=== PATIENT | male | born 1980 | race Caucasian/White ===

== ENCOUNTER 2016-09-25 05:22 | Inpatient (IN) | payer OTHER ==
--- NOTE | 2016-09-19 16:40 | CONS ---
DATE OF ADMISSION: 09/25/2016 DATE OF CONSULTATION: INTERNAL MEDICINE CONSULTATION AND PREOPERATIVE EVALUATION Patient of Dr. Bynum. Surgery is scheduled for 09/25/2016. Dear Dr. 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 The patient has a history consistent with spinal stenosis and ongoing low back pain. He has both right and left leg symptoms, especially wit h walking and standing. It also will wake him up at night. PAST MEDICAL HISTORY: Unremarkable. ALLERGIES: HE HAS NO KNOWN ALLERGIES: PAST SURGICAL HISTORY: None. FAMILY HISTORY: He is , 2 kids. Parents and siblings are alive and well. SOCIAL HISTORY: He was not in the armed services. CURRENT MEDICATIONS: He takes no medications other than [place]. HABITS: He has never smoked cigarettes and does not drink alcohol. REVIEW OF SYSTEMS: Generally unremarkable to all questions. Specifically, there is no difficulty w ith shortness of breath or tightness in his chest. Before his back got particularly bad, he was abl e to walk and climb stairs without difficulty. No history of hypertension or cardiac disease. He d oes get up twice to urinate. Unremarkable otherwise on review of systems. PHYSICAL EXAMINATION: GENERAL: Reveals a pleasant, alert gentleman in no acute distress. VITAL SIGNS: Blood pressure is 110/60, pulse is 68, he is afebrile. BMI is 29. Height is 5 foot 1 1 inches, 208 pounds. HEENT: No signs of trauma. Pupils round, reactive. Extraocular muscle movements are intact. Ears and throat: Unremarkable. NECK: Supple. LUNGS: Clear to percussion and auscultation. HEART: Tones regular. ABDOMEN: Soft without palpable mass or tenderness. EXTREMITIES: Straight leg raising is positive on either side. There is some weakness of the EHL on the right foot, and he is tender to palpation over his left low back. INITIAL IMPRESSION: Preoperative status, spinal stenosis and spondylolisthesis. DISCUSSION: Laboratory tests have returned and are unremarkable. At this point, the patient's medi regis status would appear to be stable and okay to proceed with surgery. We will be glad to follow hi m up postoperatively as needed. Dictated By: MAXIMILIANO GARCIA MD, SR/NTS Conf#: [id number] [facility]#: [id number]
[~2016-09-25] VITALS: Ht 180.3 cm; Wt 90.0 kg
[2016-09-25] VITALS (25 sets, daily range): BP systolic 109–146; BP diastolic 58–84; PULSE 61–95; RESP 15–20; Ht 180.3 cm; Wt 90.0 kg
[2016-09-25] MEDS ORDERED: HYDR-902 PO (06:17)
[2016-09-25] MEDS ORDERED: GELATIN SIZE 100 SPONGE ONE (06:44)
[2016-09-25] MEDS ORDERED: SURGIFOAM POWDER 1 GM KIT ONE ×2 (06:44→07:33)
[2016-09-25] MEDS ORDERED: HEPARIN 1000 UNITS/ML 10 ML INJ ONE (06:45)
[2016-09-25] MEDS ORDERED: CEFAZOLIN 1 GM INJ ONE ×2 (06:45→07:00)
[2016-09-25] MEDS ORDERED: THROMBIN 5000 UNIT VIAL ONE ×2 (06:45→07:33)
[2016-09-25] MEDS ORDERED: BUPIVACAINE 0.25%/EPI (SDV) 30 ML INJ ONE (06:45)
[2016-09-25] MEDS ORDERED: NALOXONE (0.4 MG/ML) INJ IV PRN (07:00)
[2016-09-25] MEDS ORDERED: DIPHENHYDRAMINE 50 MG INJ IV PRN ×2 (07:00→11:00)
[2016-09-25] MEDS ORDERED: BISACODYL 10 MG SUPP PR PRN (07:00)
[2016-09-25] MEDS: CEFAZOLIN 1 GM/50 ML (PMX) 50 ML IVPB SCH ×3 (07:00→22:49)
[2016-09-25] MEDS ORDERED: HYDROmorphONE 1 MG/ML SYG IV PRN (07:00)
[2016-09-25] MEDS ORDERED: HYDROCODONE/APAP (10/325) TAB PO PRN (07:00)
[2016-09-25] MEDS ORDERED: ONDANSETRON 4 MG INJ IV PRN ×2 (07:00→11:00)
[2016-09-25] MEDS ORDERED: ACETAMINOPHEN 325 MG TAB PO PRN (07:00)
[2016-09-25] MEDS ORDERED: HYDROmorphONE 0.2 MG/ML PCA IV SCH (07:00)
[2016-09-25] MEDS ORDERED: AL HYDROX/MG HYDROX/SIMETH 30 ML CUP PO PRN (07:00)
[2016-09-25] MEDS ORDERED: CEPASTAT LOZENGE MT PRN (07:00)
[2016-09-25] MEDS ORDERED: DIPHENHYDRAMINE 25 MG CAP PO PRN (07:00)
[2016-09-25] MEDS ORDERED: ROCURONIUM 50 MG INJ ONE (07:07)
[2016-09-25] MEDS ORDERED: MIDAZOLAM 1 MG/ML 2 ML INJ ONE (07:07)
[2016-09-25] MEDS ORDERED: SUCCINYLCHOLINE CHLORIDE 100 MG/5 ML SYG IV ONE (07:07)
[2016-09-25] MEDS ORDERED: PROPOFOL 20 ML ONE ×2 (07:07→09:13)
[2016-09-25] MEDS ORDERED: LIDOCAINE 2% (SDV) 5 ML INJ ONE (07:07)
[2016-09-25] MEDS ORDERED: FENTAnyl 50 MCG/ML VIAL ONE (07:07)
[2016-09-25] MEDS ORDERED: FAMOTIDINE 20 MG INJ ONE (07:59)
[2016-09-25] MEDS ORDERED: ONDANSETRON 4 MG INJ ONE (07:59)
[2016-09-25] MEDS ORDERED: DEXAMETHASONE 4 MG/ML 1 ML INJ ONE (07:59)
[2016-09-25] MEDS ORDERED: LABETALOL HCL 20MG INJ ONE (08:12)
[2016-09-25] MEDS: DOCUSATE SODIUM 100 MG CAP PO SCH ×2 (09:00→20:52)
--- NOTE | 2016-09-25 09:34 | RADRPT ---
PROCEDURE: XR Abdomen. CLINICAL INDICATION: L-5,S-1 INTERBODY FUSION TECHNIQUE: AP abdomen x-ray. COMPARISON: None. FINDINGS: There is a nonobstructive bowel gas pattern. There are no abnormal calcifications overlying the urinary tracts. An oval foreign body with a cannulated screw are noted at L5-S1 which are likely related to the inte rbody fusion. No other radiopaque foreign bodies are identified. IMPRESSION: Likely post procedural material is noted at L5-S1. No other radiopaque foreign bodies are identifie d. RPTAT: EE Physician Harvinder Date Time Electronically viewed and signed by Physician Harvinder on 09/25/2016 09:33 /
[2016-09-25] MEDS ORDERED: HYDROmorphONE 2 MG/ML SYG ONE (09:54)
--- NOTE | 2016-09-25 10:39 | OPR ---
DATE OF OPERATION: 09/25/2016 PREOPERATIVE DIAGNOSIS: L5 to S1 isthmic spondylolisthesis with stenosis and radiculopathy. POSTOPERATIVE DIAGNOSIS: L5 to S1 isthmic spondylolisthesis with stenosis and radiculopathy. PROCEDURE: 1. Anterior lumbar interbody fusion at L5 to S1. 2. Placement of intervertebral biomechanical device at L5 to S1 with integral screws. 3. Use of C-arm fluoroscopy with interpretation without radiologist present. 4. Use of allograft. 5. Intraoperative neuromonitoring (1 hour 15 minutes) 6. Application of NuShield. IMPLANTS: 1. Renovis Tesera Stand-Alone 30 x 38 x 13 with 7-degree lordosis. 2. Fibergraft. PRIMARY SURGEON: Jasson Bynum MD CO-SURGEON: Nate Darling MD SECOND CUSTOMS AND BORDER PROTECTION INSPECTOR: Meryl Monzon PA-C NEED FOR CO-SURGEON: A co-surgeon was required in order to provide vascular access. FINDINGS: Neuromonitoring at the start of the case revealed right L4 amplitude down 20%, right L5 a mplitude down 40%, right S1 amplitude down 30% bilaterally. At the end of the case, all signals ret urned to normal with the exception of the right S1 is down 10%. The patient had unstable spondyloli sthesis at L5 to S1. ESTIMATED BLOOD LOSS: Per Dr. Darling. SPECIMENS: L5 to S1 disk. COMPLICATIONS OF PROCEDURES: None. ANESTHESIOLOGIST: Lillian Calixto MD TYPE OF ANESTHESIA: General. INDICATIONS FOR PROCEDURE: This is a 36-year-old gentleman with grade I isthmic spondylolisthesis at L5 to S1 with radiculopathy. He had failed nonoperative measures, therefore, I recommended proce eding with the above-mentioned surgery. Preoperatively, we discussed the risks, benefits, and alter natives. He understood and wished to proceed. DESCRIPTION OF PROCEDURE IN DETAIL: The patient was identified in the preoperative holding area, [facility], taken to the operating room, where he was successfully placed under general an esthesia. Neuromonitoring leads were placed, sequential compressive devices were applied. Castro ca theter was introduced. Arterial line was placed. OG tube was placed. Neuromonitoring was utilized during this stage of the procedure for 1 hour 15 minutes to include SSEP, MEP, and EMG. This was p erformed by [employer]. Start time was 8:00 a.m., closure time was 9:15 a.m. The patient was placed on the operating table in supine position. All bony prominences were well padded. The abdo men was then prepped and draped in usual sterile fashion. Dr. Darling performed an anterior left-sided retroperitoneal approach to the spine. He will dicta te the approach separately. Once he had identified the spine, I placed a bent spinal needle into th e L5 to S1 disk space and took AP and lateral images to confirm the correct levels. Once this was c onfirmed, annulotomy was made with radical diskectomy using curettes, Kerrison punches and pituitary rongeurs. The patient had a significant concavity at the endplate of L5. Once the endplates were prepared, I placed various trials. I felt that the 15 mm height was too distractive and therefore, chose to use a 13 mm height. The 12-degree lordosis graft did not have enough contact posteriorly a nd therefore, I elected to use the 7-degree lordotic graft. I took the implant within which I place d the allograft and I impacted the intervertebral biomechanical device into the L5 to S1 level. I s lightly recessed this in order to provide a little more contact posteriorly. I made sure the L5 sig nals did not worsen while placing the graft. Once the cage was in place, I placed anterior screws. I placed two screws at S1. I placed, 1 screw into the L5 vertebral body, it was only able to get a few threads through the concavity. When I tried to place the screw most to the left, I was unable to enter the endplate due to the concavity and elected not to place this screw as I would be backing up the construct posteriorly anyway. Once this was done, I took final AP and lateral images. The wound was irrigated. A NuShield device was placed anteriorly and Dr. Darling proceeded to close t he wound in layers. He will dictate the closure as well. There were no complications during this stage of the procedure. Lap, sponge, and instrument counts were correct x2. The patient will be placed in the prone position for stage 2, which will be dictat ed separately. Dictated By: JASSON REY/NIMA Conf#: [id number] [facility]#: [id number]
[2016-09-25] MEDS ORDERED: HYDROmorphONE (0.2 MG/ML) 10ML SYG IV PRN ×3 (11:00)
[2016-09-25] MEDS ORDERED: MEPERIDINE 25 MG INJ IV PRN (11:00)
[2016-09-25] MEDS ORDERED: PROCHLORPERAZINE 10 MG INJ IV PRN (11:00)
[2016-09-25] MEDS ORDERED: FENTAnyl 50 MCG/ML VIAL IV PRN ×3 (11:00)
--- NOTE | 2016-09-25 12:06 | OPR ---
DATE OF OPERATION: 09/25/2016 PREOPERATIVE DIAGNOSIS: Status post anterior lumbar interbody fusion for isthmic spondylolisthesis at L5-S1 with radiculopathy. POSTOPERATIVE DIAGNOSIS: Status post anterior lumbar interbody fusion for isthmic spondylolisthesis at L5-S1 with radiculopathy. OPERATION PERFORMED: 1. Bilateral pedicle screw placement at L5 and S1. 2. Posterolateral fusion at L5-S1. 3. Bone marrow aspiration left L5 pedicle and vertebral. 4. Use of allograft. 5. Intraoperative neuromonitoring (1.5 hours). 6. Use of C-arm fluoroscopy with interpretation without radiologist present. IMPLANTS: [place] Mathur 6.5 x 45 mm screws at L5 and 6.5 x 40 mL screws at S1. PRIMARY SURGEON: Jasson Bynum MD ONCOLOGY PHYSICIAN: ZAYRA Jaffe NEED FOR CIGAR ROLLER: During this spinal surgical procedure, my assistant at surgery was used to retrac t and protect the spinal nerves and dural sac. My assistant at surgery also employed the suction catheters to evacuate blood from the surgical field to improve visualization of the neural structures. The shahram tant was medically necessary to facilitate the completion of the surgery in a safe and expeditious rita. State of [place] regulations, as well as hospital bylaws, preclude the use of non-license d health care personnel, such as operating room technicians, to perform these functions. FINDINGS: Neuromonitoring at start of stage II showed S1 down 10%. At the end of the case, this re turned to normal. ESTIMATED BLOOD LOSS: 30 mL. DRAINS: None. SPECIMENS: None. COMPLICATIONS OF PROCEDURES: None. ANESTHESIOLOGIST: Dr. Calixto TYPE OF ANESTHESIA: General. INDICATIONS FOR PROCEDURE: This is a 36-year-old male with unstable isthmic spondylolisthesis at L5 -S1. He failed nonoperative measures. He completed stage 1 of the procedure, which is dictated sep arately and now presents for stage II. DESCRIPTION OF PROCEDURE IN DETAIL: The patient completed stage I of the procedure to include anter ior lumbar interbody fusion at L5-S1. This portion is dictated separately. Neuromonitoring was uti lized for stage II to include SSEP, MEP, and EMG performed by Watson Brown with start time of 9: 30 a.m., closure time was 11:00 a.m. The patient was placed on the operating room table in prone po sition over a Clarke frame. All bony prominences were well padded. Back was prepped, draped in usu al sterile fashion. I injected the incision sites with Marcaine and epinephrine. Under C-arm sharon nce, I made parasagittal incisions at L5-S1. I passed Jamshidi needles into the L5 and S1 pedicles bilaterally under biplanar C-arm fluoroscopy. Bone marrow aspiration was performed from the left L5 vertebral body and pedicle. This was spun down using the Rip van Wafels device. I then passed guidewires and placed the appropriate size pedicle screws at L5 and S1 bilaterally. I stimulated the screws and there was no evidence of cortical breach. I then placed 45 mm rods bilat erally with set screws with compression across the pedicle screws with tightening of the set screws per manufacture's specifications. Once the hardware was in place, I took AP and lateral images and I was happy with placement of the hardware and alignment of the spine. The wound was then irrigated . The prepared the posterolateral gutters and placed allograft posterolaterally at L5-S1 for special procedures nurse olateral fusion. I then closed the deep fascia with #1 Vicryl stitch. Nerve signals improved. I closed subcutaneous tissue with 2-0 Vicryl stitch. A 4-0 Monocryl closure was then performed. Dermabond was then appl ied. The patient was then awakened from anesthesia and taken to recovery in stable condition. Lap, sponge, and instrument counts were correct x2. There were no apparent complications during the pro cedure. The patient will be admitted to the orthopedic colon for routine postoperative care to include pain c ontrol, neurovascular checks, antibiotics, and physical therapy. Dictated By: JASSON REY/NIMA Conf#: [id number] DID#: [id number]
--- NOTE | 2016-09-25 12:40 | RADRPT ---
PROCEDURE: X-ray fluoroscopy guidance CLINICAL INDICATION: LUMBAR FUSION L5-S1 C-ARM X 2 TECHNIQUE: Fluoroscopic guidance was utilized for intraoperative procedure. COMPARISON: None. FINDINGS: Fluoroscopic guidance was utilized for intraoperative procedure. 44 seconds of fluoroscopy time was utilized for the procedure. 2 x-ray images were obtained during the procedure. Fusion hardware/disk spacer is noted at L5-S1. IMPRESSION: X-ray fluoroscopic guidance utilized for intraoperative procedure. Fusion hardware/disk spacer is noted at L5-S1. Please see procedure note details. RPTAT: EE Physician Harvinder Date Time Electronically viewed and signed by Physician Harvinder on 09/25/2016 12:40 RA/
--- NOTE | 2016-09-25 12:41 | RADRPT ---
PROCEDURE: X-ray fluoroscopy guidance CLINICAL INDICATION: L-5,S-1 INTERBODY FUSION TECHNIQUE: Fluoroscopic guidance was utilized for intraoperative procedure. COMPARISON: None. FINDINGS: Fluoroscopic guidance was utilized for intraoperative procedure. 157 seconds of fluoroscopy time wa s utilized for the procedure. 5 x-ray images were obtained during the procedure. Posterior spinal fusion hardware is noted at L5-S1 as well as an intervening disk spacer. IMPRESSION: X-ray fluoroscopic guidance utilized for intraoperative procedure. Posterior spinal fusion hardware and an intervening disk space at L5-S1. Please see procedure note details. RPTAT: EE Physician Harvinder Date Time Electronically viewed and signed by Physician Harvinder on 09/25/2016 12:41 /
--- NOTE | 2016-09-25 13:41 | CONS ---
Date/Time of Note Date/Time of Note DATE: 09/25/16 TIME: 13:37 Assessment/Plan Assessment/Plan Problems: (1) Lumbar spinal stenosis Status: Resolved (2) Aftercare following surgery of the musculoskeletal system Status: Acute Comment: Doing well POD#0. Will defer to primary team for management of pain control and physical therapy. Will manage medical issues should they arise. Will follow w/ you. Consultation Date/Type/Reason Admit Date/Time Sep 25, 2016 at 05:22 Initial Consult Date 09/19/2016 Type of Consultation: Medicine Reason for Consultation Medical management Referring Provider: KY HUDSON MD 24 HR Interval Summary Constitutional: no complaints Exam/Review of Systems Vital Signs Vitals Vital Signs Date Time Temp Pulse Resp B/P Pulse Ox O2 Delivery O2 Flow Rate FiO2 09/25/16 13:05 84 16 135/72 96 Nasal Cannula 2.0 09/25/16 13:04 97.7 Exam Constitutional: No alert (lethargic immediately post-op) Eyes: EOMI, PERRL, nl conjunctiva, nl lids, nl sclera ENMT: mucosa pink and moist, nl external ears & nose Neck: non-tender, supple, No bruits, No masses, No thyromegaly Respiratory: clear to auscultation, normal air movement Cardiovascular: nl pulses, regular rate and rhythm, No edema, No murmurs/extra sounds, No rub Gastrointestinal: bowel sounds, nl liver, spleen, non-tender, soft, No mass, No rebound or guarding Musculoskeletal: nl extremities to inspection Extremities: normal pulses, No clubbing, No cyanosis, No edema Neurological: lethargic (immediately post-op) Medications Medications Current Medications Potassium Chloride/Sodium Chloride (1/2 NS + KCl 20 Meq) 1,000 ml @ 100 mls/hr Q10H IV ; Start 09/25/16 at 06:53 Acetaminophen/ Hydrocodone Bitart ([place] (10/325)) 1 tab Q4H PRN PO PAIN LEVEL 1-5; Start 09/25/16 at 07:00 Acetaminophen/ Hydrocodone Bitart (Roff (10/325)) 2 tab Q4H PRN PO PAIN LEVEL 6-10; Start 09/25/16 at 07:00 Hydromorphone HCl 0.2 mg 0.2 mg Q1H PRN IV BREAKTHROUGH PAIN; Start 09/25/16 at 07:00 Cefazolin Sodium (Ancef 1 Gm/50 ml (Pmx)) 50 ml @ 100 mls/hr Q8H IVPB ; Start 09/25/16 at 07:00; Stop 09/25/16 at 23:29 Ondansetron HCl (Zofran Inj) 4 mg Q6H PRN IV NAUSEA AND/OR VOMITING; Start at 07:00 Bisacodyl (Dulcolax Supp) 10 mg DAILY PRN [place] CONSTIPATION; Start 09/25/16 at 07 :00 Docusate Sodium (Colace) 100 mg BID PO ; Start 09/25/16 at 09:00 Pantoprazole (Protonix Iv) 40 mg DAILY@06 IV ; Start 09/26/16 at 06:00 Al Hydrox/Mg Hydrox/Simethicone (Mag-Al Plus) 15 ml Q6H PRN PO CONSTIPATION/ DYSPEPSIA; Start 09/25/16 at 07:00 Acetaminophen (Tylenol Tab) 650 mg Q4H PRN PO GARDINER OR TEMP GREATER THAN 101.3F; Start 09/25/16 at 07:00 Carisoprodol (Soma) 350 mg TID PRN PO MUSCLE SPASMS; Start 09/25/16 at 07:00 Phenol (Cepastat Lozenge) 1 lozenge PRN PRN MT SORE THROAT; Start 09/25/16 at 07:00 Diphenhydramine HCl (Benadryl) 25 mg Q6H PRN PO ITCHING; Start 09/25/16 at 07: 00 Diphenhydramine HCl (Benadryl) 25 mg Q6H PRN IV ITCHING; Start 09/25/16 at 07: 00 Naloxone HCl (Narcan) 0.2 mg Q2M PRN IV RR 8 BREATHS/MIN OR LESS; Start at 07:00 Hydromorphone HCl (Dilaudid SUPERVISOR [employer]MING [employer] TEMPERING) SUPERVISOR [employer]MING [employer] TEMPERING to be started in PACU Q4PCA IV Last administered on 09/25/16t 11:29; Admin Dose 6 MG; Start 09/25/16 at 07:00 Miscellaneous Information 1. Hold SUPERVISOR [employer]MING [employer] TEMPERING at 1,000... SUPERVIS[employer]ING [employer]PERING IV ; Start 09/25/16 at 07: 00 NIDHI BURGER MD Sep 25, 2016 13:41
[2016-09-25] MEDS: 1/2 NS + KCL 20 MEQ 1,000 ML IV SCH ×2 (15:02→16:53)
[2016-09-25] MEDS: CARISOPRODOL 350 MG TAB PO PRN (15:06)
--- NOTE | 2016-09-25 18:08 | OPR ---
DATE OF OPERATION: 09/25/2016 PREOPERATIVE DIAGNOSIS: Degenerative disk disease L5-S1. POSTOPERATIVE DIAGNOSIS: Degenerative disk disease, L5-S1. OPERATION PERFORMED: Anterior retroperitoneal exposure and interbody fusion L5-S1. SURGEON: Ntae Darling MD ANESTHESIA: General. CO-SURGEON: Dr. Bynum. CONSENT: Risks, benefits, complications, alternative therapies explained to the patient and the fam eva, consent obtained. OPERATIVE TECHNIQUE: The patient was placed in supine position, prepped and draped in usual sterile fashion. Time-out was called, antibiotics were given when I started. The patient was placed in jason pine position, prepped and draped in usual sterile fashion. I made an 8 cm incision in the left low er quadrant below the umbilicus. Incision was taken down to the subcutaneous tissue which was then opened using electrocautery. Left anterior rectus sheath was opened in the direction of the wound. Retroperitoneal space was entered. Bookwalter retractor was placed retracting the bowel contents t o the right and left rectus muscle to left. I dissected the middle sacral vessels, ligated them. T he exposure for L5-S1 was obtained between the right and left common iliac vessels. We proceeded wi th diskectomy and placement of the cage. Please refer to Dr. Bynum's dictation for the details of that operation. After all the x-rays were satisfactory, read by Dr. Bynum, sponge count was correct. No evidence of any blood or any bleeding was noted. There was good pulsation in the left common iliac and external iliac artery. The anterior rectus sheath was closed using a #1 Vicryl jason ture in running fashion with interrupted sutures in the middle. The wound was irrigated again and c losed in 2 layers of 2-0 Vicryl suture for subcutaneous and Steri-Strips for the skin. Patient tole rated procedure well. Dictated By: NATE DARLING MD FM/NTS Conf#: [id number] DID#: [id number]
[2016-09-25] MEDS: HYDROmorphONE 0.2 MG/ML PCA IV SCH (23:47)
[2016-09-26] MEDS: 1/2 NS + KCL 20 MEQ 1,000 ML IV SCH ×3 (01:41→23:40)
[2016-09-26 05:19] LABS: ADD SCAN DIFF NO
[2016-09-26 05:21] LABS: BASOPHILS % 0.1 % (0.0-2.0); HEMATOCRIT 39.1 % (42.0-52.0); HEMOGLOBIN 13.1 g/dl (14.0-18.0); LYMPHOCYTES # 1.8 10^3/ul (0.8-2.9); LYMPHOCYTES % 18.4 % (15.0-51.0); MEAN CORPUSCULAR HEMOGLOBIN 29.7 pg (29.0-33.0); MEAN CORPUSCULAR HGB CONC 33.5 g/dl (32.0-37.0); MEAN CORPUSCULAR VOLUME 88.7 fl (82.0-101.0); MEAN PLATELET VOLUME 9.7 fl (7.4-10.4); MONOCYTE # 0.9 10^3/ul (0.3-0.9); MONOCYTES % 8.9 % (0.0-11.0); NEUTROPHIL # 6.9 10^3/ul (1.6-7.5); NEUTROPHILS % 72.3 % (39.0-77.0); PLATELET COUNT 259 10^3/UL (140-415); RED BLOOD COUNT 4.41 10^6/ul (4.70-6.10); WHITE BLOOD COUNT 9.6 10^3/ul (4.8-10.8)
[2016-09-26] MEDS: PANTOPRAZOLE 40 MG INJ IV SCH (05:42)
[2016-09-26 05:45] LABS: POTASSIUM 3.7 mmol/L (3.5-5.1)
[2016-09-26 05:47] LABS: CREATININE 0.83 mg/dl (0.61-1.24)
[2016-09-26 05:49] LABS: CALCIUM 8.6 mg/dl (8.4-10.2); MAGNESIUM 1.7 mg/dl (1.7-2.5)
[2016-09-26 08:02] VITALS: BP 127/62; RESP 19
[2016-09-26] MEDS: DOCUSATE SODIUM 100 MG CAP PO SCH ×2 (09:40→21:41)
[2016-09-26] MEDS: HYDROmorphONE 0.2 MG/ML PCA IV SCH (10:30)
--- NOTE | 2016-09-26 11:53 | PN ---
Date/Time of Note Date/Time of Note DATE: 09/26/16 TIME: 11:52 Assessment/Plan Lines/Catheters IV Catheter Type (from Nrsg): Saline Lock Castro in Place (from Nrsg): Yes Assessment/Plan Assessment/Plan doing well. continue pain control and PT Subjective 24 Hr Interval Summary c/o pain Exam/Review of Systems Vital Signs Vitals Vital Signs Date Time Temp Pulse Resp B/P Pulse Ox O2 Delivery O2 Flow Rate FiO2 09/26/16 08:02 98.0 100 19 127/62 98 09/25/16 20:00 Nasal Cannula 09/25/16 16:45 2.0 Intake and Output 09/25/16 09/25/16 09/26/16 15:00 23:00 07:00 Intake Total 1970 ml 370 ml 1700 ml Output Total 580 ml 700 ml 1800 ml Balance 1390 ml -330 ml -100 ml Exam Free Text/Dictation EHL strength full Results Result Diagram: 09/26/16 0445 09/26/16 0445 KY HUDSON MD Sep 26, 2016 11:53
[2016-09-26 12:00] VITALS: BP 118/72; PULSE 100; RESP 16
[2016-09-26 16:00] VITALS: BP 125/76; PULSE 103; RESP 16
--- NOTE | 2016-09-26 17:49 | PN ---
Date/Time of Note Date/Time of Note DATE: 09/26/16 TIME: 17:47 Assessment/Plan VTE Prophylaxis VTE Prophylaxis Intervention: SCD's Lines/Catheters IV Catheter Type (from Nrsg): Saline Lock Urinary Cath still in place: Yes Subjective 24 Hr Interval Summary Free Text/Dictation post lami, fusion got up twice, slowly beck in, no bm only co soreness at abd surgical site feet feel better, no numbness Exam/Review of Systems Vital Signs Vitals Vital Signs Date Time Temp Pulse Resp B/P Pulse Ox O2 Delivery O2 Flow Rate FiO2 09/26/16 14:00 19 09/26/16 08:02 98.0 100 127/62 98 09/26/16 08:00 Nasal Cannula 2.0 Intake and Output 09/25/16 09/25/16 09/26/16 15:00 23:00 07:00 Intake Total 1970 ml 370 ml 1700 ml Output Total 580 ml 700 ml 1800 ml Balance 1390 ml -330 ml -100 ml Results Result Diagram: 09/26/16 0445 09/26/16 0445 Results 24 hrs Laboratory Tests Test 09/26/16 04:45 White Blood Count 9.6 Red Blood Count 4.41 L Hemoglobin 13.1 L Hematocrit 39.1 L Mean Corpuscular Volume 88.7 Mean Corpuscular Hemoglobin 29.7 Mean Corpuscular Hemoglobin Concent 33.5 Red Cell Distribution Width 13.0 Platelet Count 259 Mean Platelet Volume 9.7 Neutrophils % 72.3 Lymphocytes % 18.4 Monocytes % 8.9 Eosinophils % 0.0 Basophils % 0.1 Nucleated Red Blood Cells % 0.0 Neutrophils # 6.9 Lymphocytes # 1.8 Monocytes # 0.9 Eosinophils # 0.0 Basophils # 0.0 Nucleated Red Blood Cells # 0.0 Sodium Level 136 Potassium Level 3.7 Chloride Level 99 Carbon Dioxide Level 24 Anion Gap 17 H Blood Urea Nitrogen 9 Creatinine 0.83 Glucose Level 89 Calcium Level 8.6 Magnesium Level 1.7 Medications Medications Current Medications Potassium Chloride/Sodium Chloride (1/2 NS + KCl 20 Meq) 1,000 ml @ 100 mls/hr Q10H IV Last administered on 09/26/16t 12:51; Admin Dose 100 MLS/HR; Start at 06:53 Acetaminophen/ Hydrocodone Bitart ([place] (10325)) 1 tab Q4H PRN PO PAIN LEVEL 1-5; Start 09/25/16 at 07:00 Acetaminophen/ Hydrocodone Bitart ([place] (10/325)) 2 tab Q4H PRN PO PAIN LEVEL 6-10; Start 09/25/16 at 07:00 Hydromorphone HCl (Dilaudid) 0.2 mg Q1H PRN IV BREAKTHROUGH PAIN; Start at 07:00 Ondansetron HCl (Zofran Inj) 4 mg Q6H PRN IV NAUSEA AND/OR VOMITING Last administered on 09/26/16 09:43; Admin Dose 4 MG; Start 09/25/16 at 07:00 Bisacodyl (Dulcolax Supp) 10 mg DAILY PRN [place] CONSTIPATION; Start 09/25/16 at 07 :00 Docusate Sodium (Colace) 100 mg BID PO Last administered on 09/26/16 09:40; Admin Dose 100 MG; Start 09/25/16 at 09:00 Pantoprazole (Protonix Iv) 40 mg DAILY@06 IV Last administered on 09/26/16 05: 42; Admin Dose 40 MG; Start 09/26/16 at 06:00 Al Hydrox/Mg Hydrox/Simethicone (Mag-Al Plus) 15 ml Q6H PRN PO CONSTIPATION/ DYSPEPSIA; Start 09/25/16 at 07:00 Acetaminophen (Tylenol Tab) 650 mg Q4H PRN PO GARDINER OR TEMP GREATER THAN 101.3F; Start 09/25/16 at 07:00 Carisoprodol (Soma) 350 mg TID PRN PO MUSCLE SPASMS Last administered on 15:06; Admin Dose 350 MG; Start 09/25/16 at 07:00 Phenol (Cepastat Lozenge) 1 lozenge PRN PRN [place] SORE THROAT; Start 09/25/16 at 07:00 Diphenhydramine HCl (Benadryl) 25 mg Q6H PRN PO ITCHING; Start 09/25/16 at 07: 00 Diphenhydramine HCl (Benadryl) 25 mg Q6H PRN IV ITCHING; Start 09/25/16 at 07: 00 Naloxone HCl (Narcan) 0.2 mg Q2M PRN IV RR 8 BREATHS/MIN OR LESS; Start at 07:00 Miscellaneous Information 1. Hold HARNESS WORKER at 1,000... HARNESS WORKER IV ; Start 09/25/16 at 07: 00 Hydromorphone HCl (Dilaudid HARNESS WORKER) HARNESS WORKER to be started in PACU Q4PCA IV Last administered on 09/26/16t 10:30; Admin Dose 6 MG; Start 09/25/16 at 16:00 MAXIMILIANO GARCIA MD Sep 26, 2016 17:49
[2016-09-26 20:19] VITALS: BP 136/63; RESP 20
[2016-09-27] MEDS: HYDROmorphONE 0.2 MG/ML PCA IV SCH (00:40)
[2016-09-27 05:09] LABS: ADD SCAN DIFF NO
[2016-09-27 05:16] LABS: BASOPHILS % 0.2 % (0.0-2.0); EOSINOPHILS % 0.3 % (0.0-7.0); LYMPHOCYTES # 1.3 10^3/ul (0.8-2.9); LYMPHOCYTES % 12.2 % (15.0-51.0); MEAN CORPUSCULAR HEMOGLOBIN 30.3 pg (29.0-33.0); MEAN CORPUSCULAR HGB CONC 34.2 g/dl (32.0-37.0); MEAN CORPUSCULAR VOLUME 88.6 fl (82.0-101.0); MEAN PLATELET VOLUME 9.7 fl (7.4-10.4); MONOCYTE # 1.1 10^3/ul (0.3-0.9); MONOCYTES % 10.3 % (0.0-11.0); NEUTROPHILS % 76.7 % (39.0-77.0); PLATELET COUNT 236 10^3/UL (140-415); RED BLOOD COUNT 4.29 10^6/ul (4.70-6.10); RED CELL DISTRIBUTION WIDTH 12.7 % (11.5-14.5); WHITE BLOOD COUNT 10.4 10^3/ul (4.8-10.8)
[2016-09-27] MEDS: PANTOPRAZOLE 40 MG INJ IV SCH (05:17)
[2016-09-27 05:33] LABS: CALCIUM 8.6 mg/dl (8.4-10.2); CREATININE 0.76 mg/dl (0.61-1.24); MAGNESIUM 1.8 mg/dl (1.7-2.5)
--- NOTE | 2016-09-27 07:56 | PN ---
Date/Time of Note Date/Time of Note DATE: 09/27/16 TIME: 07:55 Assessment/Plan Lines/Catheters IV Catheter Type (from Nrsg): Peripheral IV Castro in Place (from Nrsg): Yes Assessment/Plan Assessment/Plan continue PT, ambulate routine care anticipate D/C tomorrow Subjective 24 Hr Interval Summary pt c/o back pain Exam/Review of Systems Vital Signs Vitals Vital Signs Date Time Temp Pulse Resp B/P Pulse Ox O2 Delivery O2 Flow Rate FiO2 09/27/16 05:05 16 09/26/16 20:19 98.7 105 136/63 97 09/26/16 20:00 Nasal Cannula 2.0 Intake and Output 09/26/16 09/26/16 09/27/16 15:00 23:00 07:00 Intake Total 1060 ml 1700 ml Output Total 2300 ml 2000 ml Balance -1240 ml -300 ml Exam Free Text/Dictation NVID Results Result Diagram: 09/27/16 0420 09/27/16 0420 MERARI CACERES PA-C Sep 27, 2016 07:56
[2016-09-27 08:14] VITALS: BP 128/66; RESP 18
[2016-09-27] MEDS: 1/2 NS + KCL 20 MEQ 1,000 ML IV SCH ×2 (08:53→18:53)
[2016-09-27] MEDS: DOCUSATE SODIUM 100 MG CAP PO SCH ×2 (09:08→20:36)
[2016-09-27] MEDS: HYDROCODONE/APAP (10/325) TAB PO PRN ×3 (09:08→17:35)
[2016-09-27] MEDS: CARISOPRODOL 350 MG TAB PO PRN ×2 (11:23→16:35)
[2016-09-27 20:28] VITALS: BP 121/66; RESP 18
[2016-09-28] MEDS: 1/2 NS + KCL 20 MEQ 1,000 ML IV SCH (04:53)
[2016-09-28] MEDS: HYDROCODONE/APAP (10/325) TAB PO PRN (05:03)
[2016-09-28] MEDS: CARISOPRODOL 350 MG TAB PO PRN (05:05)
[2016-09-28 05:20] LABS: ADD SCAN DIFF NO
[2016-09-28 05:27] LABS: BASOPHILS % 0.2 % (0.0-2.0); EOSINOPHILS # 0.1 10^3/ul (0.0-0.5); HEMOGLOBIN 12.5 g/dl (14.0-18.0); LYMPHOCYTES # 1.8 10^3/ul (0.8-2.9); LYMPHOCYTES % 22.1 % (15.0-51.0); MEAN CORPUSCULAR HEMOGLOBIN 29.8 pg (29.0-33.0); MEAN CORPUSCULAR HGB CONC 33.8 g/dl (32.0-37.0); MEAN CORPUSCULAR VOLUME 88.3 fl (82.0-101.0); MEAN PLATELET VOLUME 9.7 fl (7.4-10.4); MONOCYTE # 0.7 10^3/ul (0.3-0.9); MONOCYTES % 8.6 % (0.0-11.0); NEUTROPHIL # 5.5 10^3/ul (1.6-7.5); NEUTROPHILS % 67.9 % (39.0-77.0); PLATELET COUNT 236 10^3/UL (140-415); RED BLOOD COUNT 4.19 10^6/ul (4.70-6.10); RED CELL DISTRIBUTION WIDTH 12.8 % (11.5-14.5); WHITE BLOOD COUNT 8.1 10^3/ul (4.8-10.8)
[2016-09-28 05:38] LABS: POTASSIUM 3.5 mmol/L (3.5-5.1)
[2016-09-28 05:40] LABS: CREATININE 0.85 mg/dl (0.61-1.24)
[2016-09-28 05:41] LABS: CALCIUM 8.6 mg/dl (8.4-10.2); MAGNESIUM 1.9 mg/dl (1.7-2.5)
[2016-09-28] MEDS ORDERED: PANTOPRAZOLE (EC) 40 MG TAB PO SCH (06:00)
[2016-09-28 07:00] VITALS: BP 114/60; RESP 20
[2016-09-28] MEDS: DOCUSATE SODIUM 100 MG CAP PO SCH (09:15)
--- NOTE | 2016-09-28 10:24 | DS ---
DATE OF ADMISSION: 09/25/2016 DATE OF DISCHARGE: 09/28/2016 ADMITTING DIAGNOSIS: Disk disease and stenosis. DISCHARGE DIAGNOSES: Disk disease and stenosis. PROCEDURE: The patient was taken to the operating room on 09/25/2016 and underwent lumbar fusion. HOSPITAL COURSE: The patient was admitted to the orthopedic colon after undergoing the above procedu re. His postoperative course was uncomplicated. By postoperative day 3, he was deemed stable for d ischarge with followup arranged with the undersigned. Dictated By: [place] REY/NIMA Conf#: [id number] DID#: [id number]
== END 2016-09-28 12:51 | disposition home or self-care (01) | DRG 455 ==
LOC: REC 05:22 → MS1 12:44
PROVIDERS: ADMIT Specialist; ATTEND Specialist
PROC: 0SG30K1 Fusion of Lumbosacral Joint with Nonautologous Tissue Substitute, Posterior Approach, Posterior Column, Open Approach (ICD-10-PCS; 2016-09-25)
PROC: 0ST40ZZ Resection of Lumbosacral Disc, Open Approach (ICD-10-PCS; 2016-09-25)
PROC: 07DS3ZZ Extraction of Vertebral Bone Marrow, Percutaneous Approach (ICD-10-PCS; 2016-09-25)
PROC: 4A11X4G Monitoring of Peripheral Nervous Electrical Activity, Intraoperative, External Approach (ICD-10-PCS; 2016-09-25)
PROC: 0SG30A0 Fusion of Lumbosacral Joint with Interbody Fusion Device, Anterior Approach, Anterior Column, Open Approach (ICD-10-PCS; principal; 2016-09-25 07:00)
DX: M43.17 Spondylolisthesis, lumbosacral region (principal); M48.07 Spinal stenosis, lumbosacral region; M54.17 Radiculopathy, lumbosacral region
CPT/HCPCS: 72100; 72110; 74000; 80048; 83735; 85025; 86850; 86900; 86901; 86920; 86999; 97116; 97162; 97530; C1713; C9113; J0330; J0690; J1100; J1170; J1644; J2250; J2405; J3010; J3480; V2790

== ENCOUNTER 2016-10-08 11:42 | Emergency (ER) | payer SELFPAY ==
[~2016-10-08] VITALS: Ht 180.3 cm; Wt 95.0 kg
[~2016-10-08 11:42] MED LIST: HYDR-902 PO
[2016-10-08 11:46] VITALS: Ht 180.3 cm; Wt 95.0 kg
== END 2016-10-08 17:33 | disposition left against medical advice (07) ==
LOC: E/R 11:42
DX: Z53.21 Procedure and treatment not carried out due to patient leaving prior to being seen by health care provider (principal)

== ENCOUNTER → 2016-10-09 | Outpatient (CLI) | payer OTHER ==
--- NOTE | 2016-10-09 15:44 | RADRPT ---
PROCEDURE: US Lower extremity Venous. CLINICAL INDICATION: Bilateral lower extremity edema , pain TECHNIQUE: Multiple sonographic images of the bilateral lower extremity deep venous system was obt ained utilizing grayscale, color-flow, compressive sonography and doppler imaging with augmentation. The images were reviewed on a PACS workstation. COMPARISON: None. FINDINGS: There is normal compressibility and flow within the bilateral common femoral, femoral , posterior ti bial and popliteal veins. RPTAT: AA IMPRESSION: No sonographic evidence for deep venous thrombosis. .Benito Villarreal MD, MD Date Time Electronically viewed and signed by .Benito Villarreal MD, on 10/09/2016 15:43 .S/
== END | disposition home or self-care (01) ==
LOC: VAS 14:59
PROVIDERS: ATTEND Specialist
DX: M79.604 Pain in right leg (principal); M79.605 Pain in left leg; R60.0 Localized edema
CPT/HCPCS: 93970

== ENCOUNTER 2017-07-30 05:34 | Inpatient (IN) | END 2017-08-02 15:45 | disposition home or self-care (01) | DRG 519 ==